=== PATIENT | female | born 1965 | race Caucasian/White ===

== ENCOUNTER 2020-10-18 12:19 | Emergency (ER) | payer OTHER ==
[~2020-10-18 12:19] MED LIST: MACROBID100 MG PO; MORPHINE 15MG E15 MG PO; MORPHINE SULFAT10 M1 PO; MORPHINE SULFAT15 MG PO; MS CONTIN15 MG PO
[2020-10-18 13:06] LABS: BASOPHIL 1.1 % (0-2); EOSINOPHIL 3.5 % (0-5); HCT 41.4 % (37.0-47.0); LYMPHOCYTE 28.2 % (15-48); MCH 30.8 pg (25.0-31.0); MCHC 33.8 g/dL (32.0-36.0); MONOCYTE 11.4 % (0-12); NEUTROPHIL 55.3 % (41-80); NRBC 0; PLT 269 K/uL (150-400); RBC 4.55 M/uL (4.20-5.40); RDW 12.3 % (11.5-14.0); WBC 8.3 K/uL (4.0-10.5)
[2020-10-18 13:23] LABS: BUN/CREAT RATIO (CALC) 15.4 RATIO; CREATININE 1.04 mg/dL (0.51-0.95)
[2020-10-18 13:28] LABS: INR 1.03 (0.9-1.2); PROTHROMBIN TIME 12.8 SECONDS (11.4-13.6); PTT 28.5 SECONDS (22.2-34.7)
[2020-12-24] MEDS ORDERED: MORPHINE SULFAT10 M1 PO (12:52)
[2020-12-24] MEDS ORDERED: OXYCODON-ACETA1 EAC1 PO (13:08)
[2021-03-25] MEDS ORDERED: MORPHINE SULFAT10 M1 PO (12:22)
[2021-03-25] MEDS ORDERED: MORPHINE 15MG E15 MG PO (12:22)
== END 2020-10-18 15:31 | disposition home or self-care (01) ==
LOC: FER 12:19
PROVIDERS: Emergency Medicine
DX: S70.11XA Contusion of right thigh, initial encounter (principal); I10 Essential (primary) hypertension; X58.XXXA Exposure to other specified factors, initial encounter; Z79.899 Other long term (current) drug therapy
CPT/HCPCS: 36415; 73552; 80048; 85025; 85610; 85730; 93971

== ENCOUNTER 2022-03-03 09:01 | Emergency (ER) | payer OTHER ==
[~2022-03-03 09:01] MED LIST changes: +OXYCODON-ACETA1 EAC1 PO
[2022-03-03] MEDS ORDERED: MORPHINE SULFAT10 M1 PO (16:51)
== END 2022-03-03 10:05 | disposition home or self-care (01) ==
LOC: FER 09:01
DX: S93.491A Sprain of other ligament of right ankle, initial encounter (principal); I10 Essential (primary) hypertension; Z28.310 Unvaccinated for COVID-19; W19.XXXA Unspecified fall, initial encounter; Y92.009 Unspecified place in unspecified non-institutional (private) residence as the place of occurrence of the external cause
CPT/HCPCS: 73610